=== PATIENT | male | born 1985 | race Caucasian/White ===

== ENCOUNTER 2018-07-03 12:31 | Emergency (ER) | payer MEDICAID, SELFPAY ==
[2018-07-03 12:32] VITALS: BP 129/79; PULSE 95; RESP 18; TEMP 36.6; O2SAT 98; BMI 30.7
--- NOTE | 2018-07-03 12:56 | EKG12_ITS ---
Test Reason : CP Blood Pressure : / mmHG Vent. Rate : 073 BPM Atrial Rate : 073 BPM P-R Int : 174 ms QRS Dur : 088 ms QT Int : 362 ms P-R-T Axes : 068 040 034 degrees QTc Int : 398 ms Normal sinus rhythm with sinus arrhythmia Normal ECG Confirmed by YISEL BOLANOS, PARAM ([id number]), food editor HUMAIRA SQUIRES ([id number]) on 07/04/2018 2:07:54 PM Referred By: LUCERO Confirmed By:PARAM MORILLO MD
--- NOTE | 2018-07-03 12:58 | PCA ---
NO OLD EKG IN MUSE
[2018-07-03] MEDS: Mag Hydrox/Al Hydrox/Simeth 30 ML UDC PO (14:05)
--- NOTE | 2018-07-03 14:37 | ED.VISSUMM ---
- ER Visit Summary Date of Service: 07/03/18 Chief Complaint: Lower chest epigastric burning sensation History of Present Illness: The patient is a 33 M who presents with chest pain and burning sensation for the past several weeks. The discomfort is worse when he is supine and he complains of some eructation. He does complain of intermittent shortness of breath while he has had this burning sensation. He denies hematemesis, melena hematochezia. He denies maroon stool. He has history of opiate dependency and has been on Suboxone for 6 years. He takes sublingual Suboxone. Apparently has increased salivation when the medication is under his tongue and the pain is intensified. He has no other complaints please read written note for complete detail Physical Examination: Patient appears in no distress. He is soft-spoken. Vital signs noted and blood pressure slightly elevated 129/79 otherwise normal. HEENT is unremarkable. Insert cardiac pulmonary exam abdomen is marked tenderness in the epigastric area. There is no tenderness to palpation right costal margin left costal margin. There is no hepatosplenomegaly. the remainder of his exam is unremarkable. Test Results: EKG was obtained per nurse protocol and reveals a sinus rhythm with a rate of 73 and is completely normal. Emergency Department Course and Treatment: GI cocktail. Patient was reassessed at 1439. Treatment Plan: Prescription for PPI Disposition: Discharged to home Impression: Chest pain secondary to GERD This note was generated with [employer] dictation software. It may contain incorrect words, spelling, and punctuation that were not noted in review of the chart prior to signing ED Disposition - Plan for ED Patient: Disposition: Home or Assisted Living Chief Complaint: Chest Pain Instructions: ED GERD, Tips to Control Acid Reflux, Lifestyle Changes for Controlling GERD Prescriptions: Pantoprazole Sodium [Protonix] 40 mg PO DAILY #30 tab Referrals: Que Mason MD [Primary Care Provider] - 1-2 Weeks Additional Instructions: Your prescription was electronically transmitted to [facility], your preferred pharmacy.
[2018-07-03 14:46] VITALS: BP 129/72; PULSE 65; RESP 16; O2SAT 97
== END 2018-07-03 14:55 | disposition home or self-care (01) ==
PROVIDERS: Emergency Provider Emergency Medicine; Family Provider Family Medicine; PCP Family Medicine
DX: K21.9 Gastro-esophageal reflux disease without esophagitis (principal)
CPT/HCPCS: 93005; 99283

== ENCOUNTER 2018-07-30 17:50 | Emergency (ER) | payer MEDICAID, SELFPAY ==
[2018-07-30 17:51] VITALS: BP 146/93; PULSE 72; RESP 16; TEMP 35.9; O2SAT 100; BMI 27.0
--- NOTE | 2018-07-30 18:37 | CT_ITS ---
STUDY: CT ABDOMEN AND PELVIS WITHOUT CONTRAST REASON FOR EXAM: Male, 33 years old. Right flank pain RADIATION DOSAGE (If Supplied By Facility): CTDIvol = ( 8.78 ) mGy, DLP = ( 473.85 ) mGycm TECHNIQUE: Transaxial images were obtained from the dome of the diaphragm to the symphysis pubis without oral contrast, and without intravenous contrast. Sagittal and coronal images were reconstructed. Individualized dose optimization techniques were used for this CT. COMPARISON: None. FINDINGS: Evaluation of the abdominal viscera is limited in the absence of intravenous contrast. The visualized lung bases are clear. The visualized portions of the heart and pericardium are within normal limits. There are no calcified gallstones present. The liver demonstrates an unremarkable unenhanced appearance. The spleen is normal in size. The pancreas demonstrates an unremarkable unenhanced appearance. The adrenal glands are within normal limits. There are no renal or ureteral stones. There is no hydronephrosis. Normal visualized stomach. There is no bowel obstruction or inflammation. There is a large mount of stool in the colon, consistent with constipation. The appendix is visualized and appears normal. The aorta is normal in caliber. There is no abdominal or pelvic free air, free fluid, fluid collection or lymphadenopathy. There are no destructive osseous lesions. CT/Abdomen/Pelvis without Cont IMPRESSION: No acute abdominal or pelvic pathology demonstrated on this noncontrast CT. Constipation. Electronically Signed: Heladio Carr, at 19:28 EDT Tel , Service support ,
[2018-07-30 19:19] LABS: Absolute Lymphocyte Count 2.94 X10^3/ul (0.83-4.51); Absolute Neutrophil Count 3.1 X10^3/uL (2.0-7.7); Basophil# 0.01 X10^3/uL; Basophil% 0.1 % (0-1); Eosinophil# 0.13 X10^3/uL; Eosinophils% 1.9 % (0-5); Hematocrit 41.7 % (40-54); Hemoglobin 14.4 g/dl (13.0-16.5); Lymphocyte # 2.94 X10^3/ul (4.0); Lymphocyte % 43.8 % (19-41); Mean Corp Hgb Conc 34.5 g/gl (32-36); Mean Corpuscular Hgb 29.4 pg (27.0-32.0); Mean Corpuscular Volume 85.1 fL (80-94); Mean Platelet Vol. 10.1 fl (6.2-12.0); Monocyte# 0.51 X10^3/uL; Monocyte% 7.6 % (0-10); Neutrophil # 3.13 X10^3/uL (2.7-7.7); Neutrophil % 46.6 % (47-70); Platelet Count 182 K/mm3 (150-450); RBC Distribution Width CV 11.7 % (11.6-14.6); RBC Distribution Width SD 36.3 fl (35.1-43.9); White Blood Count 6.7 K/mm3 (4.4-11.0)
[2018-07-30 19:21] LABS: POSITIVE COUNT NO; POSITIVE DIFFERENTIAL NO; POSITIVE MORPHOLOGY NO
[2018-07-30 19:27] LABS: Anion Gap 6 (5-15); BUN 8 mg/dL (7-18); BUN/Creat Ratio 8.1 RATIO (10-20); Calcium,Total 9.3 mg/dL (8.5-10.1); Chloride 101 mmol/L (98-107); Creatinine, Serum 0.98 mg/dL (0.70-1.30); EST Glomerular Filtration Rate 93 mL/min (>60); Est Glom Filt Rate - Afr Amer 112 mL/min (>60); Estimated Creatinine Clearance 113.12 ml/min; Glucose 84 mg/dL (74-106); Potassium 3.6 mmol/L (3.5-5.1); Sodium Level 138 mmol/L (136-145)
--- NOTE | 2018-07-30 19:27 | ED.VISSUMM ---
- ER Visit Summary Date of Service: 07/30/18 Chief Complaint: Flank pain History of Present Illness: The patient is a 33 M with flank pain and hematuria for the past 2-3 days. Pain is radiating into his right testicle. He has no fever or chills he denies any abdominal pain other than testicular pain. No nausea or vomiting. No chest pain or shortness of breath. Physical Examination: Not appear in acute distress. Moist mucous membranes, no obvious facial deformity No C-spine tenderness supple neck. Regular rate and rhythm without any obvious murmurs Clear lungs bilaterally speaking in full sentences without any obvious respiratory distress Abdomen soft and nontender no guarding or rebound He has no testicular pain to palpation. Normal lie of the testicles. Normal external genitalia He does have right-sided CVA pain. Moves all extremities without any difficulty or pain. Skin does not show any obvious rashes or lesions, no trauma. Alert oriented ?3 with no gross focal deficit Emergency Department Course and Treatment: She has a negative CT of the flank, negative urinalysis without any blood and normal blood work. His symptoms are secondary to likely musculoskeletal etiology. I will discharge in stable condition with muscle relaxants. Disposition: Discharge stable condition Impression: Flank pain This note was generated with [employer] dictation software. It may contain incorrect words, spelling, and punctuation that were not noted in review of the chart prior to signing ED Disposition - Plan for ED Patient: Disposition: Home or Assisted Living Chief Complaint: Flank Pain Instructions: Relieving Back Pain Prescriptions: Tizanidine HCl [Zanaflex] 4 mg PO BID #20 tab Referrals: Que Mason MD [Primary Care Provider] - 3-5 Days
[2018-07-30 20:17] LABS: Bacteria 0 SEEN /hpf (None Seen); Mucous, Urine 0 SEEN /hpf (<or=2+); Red Blood Cells-Urine 0 SEEN /hpf (0-5); Squamous Epithelial Cells - UA 0 SEEN /hpf (0-5); White Blood Cells 0 SEEN /hpf (0-5)
[2018-07-30 20:35] LABS: Color, Urine Yellow (Yellow); Glucose, Dipstick Normal (Normal); Ketone-Dipstick 50 mg/dl (Negative); Leukocyte Esterase-Dipstick Negative /ul (Negative); Nitrite-Dipstick Negative (Negative); Occult Blood-Urine Negative /ul (Negative); Protein-Dipstick Negative (Negative); Urine Bilirubin Dipstick Negative (Negative); Urine Clarity Clear (Clear); Urine Urobilinogen 1 mg/dl (Normal)
[2018-07-30 21:48] VITALS: BP 125/84; PULSE 57; RESP 16; O2SAT 100
[2018-07-30 21:51] VITALS: BP 125/84; PULSE 57; RESP 16; O2SAT 100
== END 2018-07-30 21:59 | disposition home or self-care (01) ==
PROVIDERS: Emergency Provider Emergency Medicine; Family Provider Family Medicine; PCP Family Medicine
DX: R10.9 Unspecified abdominal pain (principal); M54.9 Dorsalgia, unspecified
CPT/HCPCS: 74176; 80048; 81001; 85025; 99283; A4216

== ENCOUNTER 2023-01-07 16:51 | Emergency (ER) | payer MEDICAID, SELFPAY ==
[2023-01-07 16:51] VITALS: BP 136/88; PULSE 95; RESP 18; TEMP 36.4; O2SAT 99; BMI 26.5
--- NOTE | 2023-01-07 17:06 | EX.ED.UPPERE ---
HPI History of Present Illness HPI Narrative: Left index finger laceration 24 hours ago. Needs tetanus updated. Chief Complaint: Laceration Informant: patient Occured/Mechanism Mechanism/Context: Yes injury Onset/Context/Timing Onset: Yesterday Context: Sudden Onset Timing: Continuous Quality of Pain: Dull Current Severity: Mild Maximum Severity: Mild Associated Symptoms Associated Symptoms: Negative for Parasthesia, Weakness or Loss of Funtion Narrative Narrative: Left index finger laceration occurred 24 hours ago yesterday when he was using a knife to cut some rope. He is right-hand dominant. Denies any fever or pus. Mild discomfort. He has not sought treatment on it until today. Tetanus Immunization: >10 years Prior similar symptoms: No Recent Illness/Hospitalization: No PFSH PFSH Home Medications buprenorphine HCl 8 mg sublingual tablet 4 mg sublingual DAILY 07/03/18 [History Last Taken 07/02/18] pantoprazole 40 mg tablet,delayed release 40 mg PO DAILY LPR 07/30/18 [History Last Taken Unknown] tizanidine 4 mg tablet 4 mg PO BID #20 tabs 07/30/18 [Rx Last Taken Unknown] cephalexin 250 mg capsule 250 mg PO Q6H 5 days #20 caps 01/07/23 [Rx Last Taken Unknown] Allergy/AdvReac Type Severity Reaction Status Date / Time cat dander Allergy Rash Verified 07/03/18 12:35 Social History Smoking Status: Never smoker ROS ROS ED ROS Narrative Denies recent illness. Review of Systems ROS Unobtainable: Denies due to encephalopathy Constitutional Constitutional ED: Denies chills or fever(s) Eyes Eyes: Denies blurry vision ENT ENT ED: Denies ear pain Cardiovascular Cardiovascular: Denies chest pain Respiratory/Chest Respiratory/Chest: Denies cough or dyspnea Gastrointestinal Gastrointestinal: Denies abdominal pain Genitourinary Genitourinary ED: Denies dysuria or hematuria Musculoskeletal Musculoskeletal: Denies back pain Integumentary Denies abscess Neurologic Neurologic: Denies headache(s) Psychiatric Psychiatric: Denies anxiety or depression Endocrine Endocrinology: Denies cold intolerance Hematologic/Lymphatic Hematologic/Lymphatic: Denies easy bleeding Allergic/Immunologic Allergic/Immunologic ED: Denies mouth swelling EXAM Physical Exam Narrative Exam Narrative: 37-year-old male no acute distress. Vital signs stable afebrile. H EENT exam unremarkable. Neck nontender. Lungs are clear. Heart regular rhythm. Abdomen soft nontender. Left hand index finger on the dorsum he has a semicircular flap laceration that is closed. He has normal extension 180 degrees against resistance. Normal touch sensation and cap refill index finger. He has limited flexion due to swelling but he is able to do flexion. Other digits in the hand are unremarkable. There is no signs of infection. No pus. No streaks. No lymphadenopathy in the left axilla. Const Vital Signs: 01/07/23 16:51 Temperature 97.6 F L Temperature Source Temporal Pulse Rate 95 Respiratory Rate 18 Blood Pressure 136/88 H Blood Pressure Mean 104 Pulse Ox 99 Oxygen Delivery Method Room Air Positive well nourished and well developed; Negative for obese, cachectic, contractures or unkempt General Appearance ED: well developed and NAD; Negative for unkempt, cachectic, contractures, cyanotic or diaphoretic Nutritional Appearance: Negative for cachectic or obese HEENT Reports moist mucous membranes normocephalic and atraumatic; Negative for trauma or tenderness Eyes PERRL and EOMs intact bilaterally General Eye ED: Negative for other Neck full ROM and supple General: Negative for tenderness Lymph Lymphatic: Negative for other Chest Wall inspection of chest normal and palpation of chest normal Chest: Negative for other Resp normal respiratory effort and clear to auscultation bilaterally Effort and Inspection: Negative for pain with movement Auscultation: Negative for rales or rhonchi Cardio regular rate, regular rhythm, S1 normal heart sound, S2 normal heart sound and no murmurs Rate: Negative for bradycardia or tachycardic Rhythm: Negative for abnormal rhythm GI non-tender, non-distended and no masses Inspection: Negative for abdominal distention Auscultation: normoactive bowel sounds Palpation: soft; Negative for tender or guarding Back/Spine no CVA tenderness General Back: Negative for CVA tenderness Cervical Spine: Negative for cervical spine tenderness Thoracic Spine / Upper Back: Negative for thoracic spinal tenderness Lumbar Spine / Lower Back: Negative for lumbar spinal tenderness Extremity normal to inspection and full ROM Extremity Narrative: Laceration left index finger of the dorsal radial side. It is closed. No signs of infection. Normal extension. Limited flexion due to discomfort but he is able to flex. Normal touch sensation. Neuro oriented x3, CN's II-XII intact bilaterally, moves all extremities, no focal motor deficits and no sensory deficits noted Sensorium / Orientation: alert, oriented to person, oriented to place and oriented to time; Negative for orientation impaired, lethargic or stuporous Motor Exam: strength 5/5 throughout Psych mental status grossly normal Appearance: Negative for unkempt Attitude: No agitated Mood & Affect: Negative for depressed, anxious or tearful Skin General Skin Exam: Negative for petechiae Lesions: no lesions Rashes: no rashes Trauma: laceration; Negative for no lacerations or abrasions or abrasion MDM MDM MDM Narrative Medical decision making narrative: 37-year-old male left index finger laceration which would need to be repaired but occurred 24 hours ago. Its not bleeding and is closed. We will clean the wound. Applied dressing. Update his tetanus he is sure his tetanus is more than 10 years old. No repair at this time. To be placed on Keflex 254 times a day for 5 days to try to prevent infection. Follow-up as needed. Return if any signs of infection which I instructed him. Discharge Plan Triage Chief Complaint: Laceration ED Provider: Low Elizabeth Dx/Rx/DC Orders Clinical Impression: Finger laceration Instructions: ED Laceration, Old: Not Sutured Prescriptions: New cephalexin 250 mg capsule 250 mg PO Q6H 5 Days Qty: 20 0RF No Action buprenorphine HCl 8 MG tablet, sublingual 4 mg sublingual DAILY pantoprazole 40 MG tablet 40 mg PO DAILY tizanidine 4 MG tablet 4 mg PO BID Qty: 20 0RF Primary Care Provider: Que Mason Referrals: Que Mason MD [Primary Care Provider] - As Needed Activity Restrictions/Additional Instructions: Ice and elevate left finger to decrease pain and swelling. Keep it dry and clean. You may take the dressing off in 4 days. If it gets dirty or wet take it off sooner. Clean daily with soap and water peroxide and water once the dressing is off. Tylenol and Motrin for pain as needed. Keflex 1 pill 4 times a day for the next 5 days to try to prevent any infection. Your tetanus is updated and is good for 10 years. Anytime in the future the get a laceration needs to be repaired soon in typical manner for 6 to 12 hours. If you see any signs of infection redness, swelling, streaks or pus or fever you need to return. Disposition Disposition: Home, Self Care
[2023-01-07] MEDS: Diphth,Pertuss(Acell),Tet Vac 0.5 ML Vial IM (17:51)
[2023-01-07] MEDS: Cephalexin 250 MG Capsule PO (17:52)
== END 2023-01-07 18:00 | disposition home or self-care (01) ==
LOC: ED 17:13
PROVIDERS: Emergency Provider Emergency Medicine; PCP Family Medicine; Visit Provider Emergency Medicine
DX: S61.219A Laceration without foreign body of unspecified finger without damage to nail, initial encounter (principal); Z23 Encounter for immunization; W26.0XXA Contact with knife, initial encounter
CPT/HCPCS: 99281; 90471; 90715; 99283

== ENCOUNTER 2023-07-22 10:23 | Emergency (ER) | payer MEDICAID, SELFPAY ==
[2023-07-22 10:23] VITALS: BP 125/84; PULSE 56; RESP 14; TEMP 36; O2SAT 97; BMI 26.4
--- NOTE | 2023-07-22 10:51 | EDS_ITS ---
HPI History of Present Illness Chief Complaint: Eye Problem Narrative Narrative: Patient sustained an eye injury 2 days ago part of a cup fell on his eye and has had pain since he was seen at an urgent care this morning and sent to the ED. He has chronic vision loss he does not feel like his vision is any worse than normal. He has pain but he thinks it is improving. PFSH PFS Medical History GERD (gastroesophageal reflux disease) Home Medications buprenorphine HCl 8 mg sublingual tablet 4 mg sublingual DAILY 07/03/18 [History Last Taken 07/02/18] pantoprazole 40 mg tablet,delayed release 40 mg PO DAILY LPR 07/30/18 [History Last Taken Unknown] tizanidine 4 mg tablet 4 mg PO BID #20 tabs 07/30/18 [Rx Last Taken Unknown] cephalexin 250 mg capsule 250 mg PO Q6H 5 days #20 caps 01/07/23 [Rx Last Taken Unknown] Allergy/AdvReac Type Severity Reaction Status Date / Time cat dander Allergy Rash Verified 07/03/18 12:35 Social History Smoking Status: Never smoker ROS ROS ED ROS Narrative Past medical history: Reviewed Medications: Reviewed Social history: Noncontributory Review of systems: General: No fever Eyes: As in HPI ENT: No upper airway congestion, normal voice Hematologic: No easy bleeding or easy bruising EXAM Physical Exam Narrative Exam Narrative: Physical exam General: Well nourished, Well developed, No Acute Distress Head: Normocephalic, Atraumatic Eyes: Conjunctiva not pale. I do not see any corneal abrasion, no conjunctival injection. Pupils are 3 mm equal and reactive ENT: Moist mucous membranes Const Vital Signs: 07/22/23 10:23 Temperature 96.8 F L Temperature Source Temporal Pulse Rate 56 L Respiratory Rate 14 Blood Pressure 125/84 H Blood Pressure Mean 97 Pulse Ox 97 Oxygen Delivery Method Room Air MDM MDM MDM Narrative Medical decision making narrative: I used the slit lamp to evaluate the eye, fluorescein was inserted as well as tetracaine. The anterior chambers are deep and quiet. There is a small dye uptake right around the pupil, I do not see an obvious corneal abrasion so I am assuming there was a corneal abrasion and it slowly healing. Otherwise a normal slit-lamp exam. I do not believe patient needs any further treatment at this time he would not benefit from blood work or imaging. 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 Discharge Plan Triage Chief Complaint: Eye Problem ED Provider: Hugo Muñoz Dx/Rx/DC Orders Clinical Impression: Abrasion, corneal Instructions: ED Corneal Abrasion Prescriptions: No Action buprenorphine HCl 8 MG tablet, sublingual 4 mg sublingual DAILY pantoprazole 40 MG tablet 40 mg PO DAILY tizanidine 4 MG tablet 4 mg PO BID Qty: 20 0RF cephalexin 250 mg capsule 250 mg PO Q6H 5 Days Qty: 20 0RF Primary Care Provider: Que Mason Referrals: Que Mason MD [Primary Care Provider] - Activity Restrictions/Additional Instructions: Use the Cipro drops 3-4 times a day for the next 3 days. Disposition Disposition: Home, Self Care
[2023-07-22] MEDS: Ciprofloxacin 0.3% 2.5ml Bottle 2 DRP RIGHT EYE (11:29)
[2023-07-22] MEDS: Tetracaine 0.5% Ophthalmic Bottle 1 DRP RIGHT EYE (11:29)
[2023-07-22] MEDS: Fluorescein 1 MG STRIP 1 STRIP RIGHT EYE (11:29)
== END 2023-07-22 11:32 | disposition home or self-care (01) ==
LOC: ED 10:58
PROVIDERS: Emergency Provider Emergency Medicine; PCP Family Medicine; Visit Provider Emergency Medicine
DX: S05.00XA Injury of conjunctiva and corneal abrasion without foreign body, unspecified eye, initial encounter (principal); H54.7 Unspecified visual loss; W22.8XXA Striking against or struck by other objects, initial encounter; K21.9 Gastro-esophageal reflux disease without esophagitis; Z79.899 Other long term (current) drug therapy
CPT/HCPCS: 99282

== ENCOUNTER 2023-08-08 20:40 | Emergency (ER) | payer MEDICAID, SELFPAY ==
[2023-08-08 20:41] VITALS: BP 126/90; PULSE 77; RESP 16; TEMP 36.6; O2SAT 99; BMI 26.1
--- NOTE | 2023-08-08 21:05 | EX.ED.VIS.EY ---
HPI History of Present Illness Chief Complaint: Eye Problem Informant: patient Narrative Narrative: Patient stated he accidentally injured his right eye earlier today when he was trying to put on a medical mask and he thinks part of it hit him in the right eye. 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 Hackett. He states his vision is no different but it is terrible to begin with he does not wear contacts or glasses because they do not help the problem that he has. PFSH PFS Medical History GERD (gastroesophageal reflux disease) Home Medications buprenorphine HCl 8 mg sublingual tablet 4 mg sublingual DAILY 07/03/18 [History Last Taken 07/02/18] pantoprazole 40 mg tablet,delayed release 40 mg PO DAILY LPR 07/30/18 [History Last Taken Unknown] tizanidine 4 mg tablet 4 mg PO BID #20 tabs 07/30/18 [Rx Last Taken Unknown] cephalexin 250 mg capsule 250 mg PO Q6H 5 days #20 caps 01/07/23 [Rx Last Taken Unknown] Allergy/AdvReac Type Severity Reaction Status Date / Time cat dander Allergy Rash Verified 08/08/23 20:41 trazodone Allergy Shortness Verified 08/08/23 20:41 of breath Social History Smoking Status: Never smoker ROS ROS ED Constitutional Constitutional ED: Denies chills or fever(s) Eyes Eyes: Reports as per HPI and eye pain ENT ENT ED: Denies ear pain, rhinorrhea or sore throat Neurologic Neurologic: Denies headache(s), paresthesias or weakness EXAM Physical Exam Const Vital Signs: 08/08/23 20:41 Temperature 98 F Temperature Source Temporal Pulse Rate 77 Respiratory Rate 16 Blood Pressure 126/90 H Blood Pressure Mean 102 Pulse Ox 99 Positive well nourished and well developed General Appearance ED: well developed and NAD HEENT atraumatic; Negative for tenderness Mouth ED: Yes oral and palatal mucosa normal and Yes lips normal Mouth: oral and palatal mucosa normal and lips normal Eyes PERRL and EOMs intact bilaterally Eyes Narrative: Eyelids everted no foreign bodies. Slit-lamp exam: Anterior chamber deep and quiet no cell or flare, no hyphema or hypopyon. With fluorescein staining, there is a very subtle superficial-appearing abrasion mid cornea over the pupil and no other signs of dye uptake. Negative Yvette. Neuro oriented x3, CN's II-XII intact bilaterally and gait normal Sensorium / Orientation: alert Skin Lesions: no lesions Rashes: no rashes MDM MDM MDM Narrative Medical decision making narrative: Slit-lamp exam consistent with superficial central corneal abrasion, the only area of dye uptake seen. His pain is temporarily resolved with tetracaine topically, consistent with this. Given bacitracin/polymyxin ophthalmic ointment with appropriate instructions for use. Follow-up with ophthalmology if no improvement/resolution after 3 days. Discharge Plan Triage Chief Complaint: Eye Problem ED Provider: Young Pina Dx/Rx/DC Orders Clinical Impression: Abrasion of cornea, right Instructions: ED Corneal Abrasion Prescriptions: No Action buprenorphine HCl 8 MG tablet, sublingual 4 mg sublingual DAILY pantoprazole 40 MG tablet 40 mg PO DAILY tizanidine 4 MG tablet 4 mg PO BID Qty: 20 0RF cephalexin 250 mg capsule 250 mg PO Q6H 5 Days Qty: 20 0RF Primary Care Provider: Que Mason Referrals: Que Mason MD [Primary Care Provider] - Dannie Hackett MD [Med Staff - Active Staff] - 3-5 Days if not improving Activity Restrictions/Additional Instructions: Use thin ribbon of antibiotic ointment up to 3 times daily as needed right eye for continued discomfort Disposition Disposition: Home, Self Care
[2023-08-08] MEDS: Fluorescein 1 MG STRIP 1 STRIP RIGHT EYE (21:15)
[2023-08-08] MEDS: Tetracaine 0.5% Ophthalmic Bottle 1 DRP RIGHT EYE (21:16)
[2023-08-08] MEDS: Neomycin/Bacitracin/Polymyxin Opth. Ointment 1 APPLIC RIGHT EYE (22:15)
== END 2023-08-08 22:17 | disposition home or self-care (01) ==
PROVIDERS: Emergency Provider Emergency Medicine; PCP Family Medicine; Visit Provider Emergency Medicine
DX: S05.01XA Injury of conjunctiva and corneal abrasion without foreign body, right eye, initial encounter (principal); W22.8XXA Striking against or struck by other objects, initial encounter
CPT/HCPCS: 92285; 99282